=== PATIENT | male | born 1975 | race Caucasian/White ===

== ENCOUNTER 2021-01-04 17:27 | Inpatient (IN) | payer MEDICAID ==
[~2021-01-04] VITALS: Ht 185.4 cm; Wt 92.1 kg
[2021-01-04] MEDS ORDERED: LORAZEPAM INJ 2 MG/ML VIAL ONE ×2 (17:44→18:32)
--- NOTE | 2021-01-04 17:51 | NUR ---
SALLY [id number] From "Alcohol withdrawal/shakes given versed 4mg prior to transfer. feel weak/nauseous". PT AAOX4, RR EVEN & UNLABORED. DENIES CP, SOB, DIZZINESS AT THIS TIME. PT SEEN & EVAL'D BY LUIS ENRIQUE BAXTER. MEDICATED ORDERED, PT RAGHU WELL. PLACED ON FORMULA CLERK, ST. PLACED ON SEIZURE PRECAUTION. WILL CONT TO MONITOR.
[2021-01-04] MEDS ORDERED: LORAZEPAM INJ 2 MG/ML VIAL IVP ONE (18:00)
[2021-01-04] MEDS ORDERED: IV NS 0.9% 1,000 ML BAG IV ONE (18:00)
[2021-01-04] MEDS ORDERED: SERT-438 PO (18:29)
[2021-01-04] MEDS ORDERED: LORAZEPAM INJ 2 MG/ML VIAL IV ONE (18:30)
[2021-01-04] MEDS ORDERED: PHARMACY ADD 1 AMP MVI TO IVF DAILY ONE BAG XX PRN (19:00)
[2021-01-04] MEDS ORDERED: Thiamine 100 MG in IV D5W 50 ML IV SCH (19:00)
[2021-01-04] MEDS ORDERED: Folic acid 1 MG in IV D5W 50 ML IV SCH (19:00)
[2021-01-04] MEDS ORDERED: IV D5/0.45 NACL 1,000 ML IV ONE ×2 (19:00→20:00)
[2021-01-04] MEDS ORDERED: Thiamine 100 MG/ML VIAL ONE (19:02)
[2021-01-04] MEDS ORDERED: Folic acid 1 MG/0.2 ML VIAL ONE (19:02)
[2021-01-04] MEDS ORDERED: MVI-12 10ML IV ONE ×2 (19:04→22:00)
[2021-01-04 19:14] LABS: CALCIUM, SERUM 7.7 mg/dL (8.5-10.1); CREATININE 0.8 mg/dL (0.6-1.3); POTASSIUM 3.2 mmol/L (3.5-5.1)
[2021-01-04 19:19] LABS: ALBUMIN 3.2 g/dL (3.4-5.0); BILIRUBIN,DIRECT 0.5 mg/dL (0.0-0.2); BILIRUBIN,TOTAL 1.4 mg/dL (0.2-1.0)
[2021-01-04] MEDS ORDERED: POTASSIUM CHLORIDE 20 MEQ TAB.PRT.SR PO ONE ×2 (19:30→19:43)
[2021-01-04 19:54] LABS: BASOPHILS % (AUTO) 0.4 % (0.0-2.0); HEMATOCRIT 47 % (39-51); HEMOGLOBIN 15.9 g/dL (13.5-17.5); LYMPHOCYTES # (AUTO) 0.3 /CMM (0.8-4.8); LYMPHOCYTES % (AUTO) 3.2 % (20.0-44.0); MEAN CORPUSCULAR HGB CONC 34 g/dl (31.0-36.0); MEAN CORPUSCULAR VOLUME 97 fL (80-96); MONOCYTES # (AUTO) 0.5 /CMM (0.1-1.30); MONOCYTES % (AUTO) 4.6 % (2.0-12.0); NEUTROPHILS # (AUTO) 9.2 /CMM (1.8-8.9); NEUTROPHILS % (AUTO) 91.8 % (43.0-81.0); PLATELET COUNT (AUTO) 105 /CMM (150-450); RED BLOOD CELL COUNT(AUTO) 4.82 MIL/uL (4.5-6.0)
[2021-01-04 20:02] LABS: BILIRUBIN,URINE NEGATIVE (NEGATIVE); COLOR,URINE YELLOW (YELLOW); LEUKOCYTE ESTERASE ,URINE NEGATIVE (NEGATIVE); NITRITE, URINE NEGATIVE (NEGATIVE); PH,URINE 6.5 (5.0-8.0); PROTEIN,URINE NEGATIVE (NEGATIVE); UGLUCOSE NEGATIVE (NEGATIVE); UROBILINOGEN,URINE 0.2 EU/dL (0.2)
--- NOTE | 2021-01-04 20:18 | NUR ---
DR. MONTOYA PAGED PER ER ORDER.
--- NOTE | 2021-01-04 20:39 | NUR ---
ER MD SPOKE TO DR. SOTO REGARDING PT ADMISSION.
--- NOTE | 2021-01-04 20:40 | NUR ---
LAB CALLED REGARDING NEGATIVE COVID RESULT.
--- NOTE | 2021-01-04 20:45 | NUR ---
REPORT GIVEN TO GIOVANY DAVIES FOR KRISTYN
--- NOTE | 2021-01-04 21:10 | NUR ---
PT TRANSFERED PER ACLS PROTOCOL
--- NOTE | 2021-01-04 21:15 | NUR ---
OFFSET PLATE MAKER ADMITTING NOTES RECEIVED REPORT FROM KELBY HARDEN RN. PATIENT A/O X4; ABLE TO MAKE NEEDS KNOWN. ON ROOM AIR, TOLERATING WELL. EXTERNAL ECOLOGICAL MODELER READS SINUS TACHY AT 110. PATIENT DENIES PAIN OR DISCOMFORT AT THIS TIME. SHAKINESS NOTED TO BUE. SKIN INTACT. IV TO RFA #20G; PATENT AND INTACT. ALL BELONGINGS ACCOUNTED FOR AND SIGNED PATIENT BELONGINGS LIST. ORIENTED PATIENT TO ROOM, STAFF, AND UNIT. MAINTAINED ON NPO DIET AND EDUCATED PATIENT. SAFETY MEASURES IN PLACE: BED IN LOWEST LOCKED POSITION, SIDE RAILS UPX2, CALL LIGHT WITHIN REACH. WILL CONTINUE PLAN OF CARE.
[2021-01-04 21:30] VITALS: BP 136/78
[2021-01-04] MEDS ORDERED: ONDANSETRON HCL/PF 4 MG/2 ML VIAL IVP PRN (22:00)
[2021-01-04] MEDS ORDERED: ACETAMINOPHEN 325 MG TABLET PO PRN (22:00)
[2021-01-04] MEDS: Folic acid 1 MG in IV D5W 50 ML IV SCH (22:00)
[2021-01-04] MEDS ORDERED: MAGNESIUM HYDROXIDE 30 ML UDC PO PRN (22:00)
[2021-01-04] MEDS ORDERED: Z GUARD REMEDY 2 OZ OINT TP PRN (22:00)
[2021-01-04] MEDS ORDERED: HYDROCODONE/APAP 5/325MG TABLET PO PRN (22:00)
[2021-01-04] MEDS ORDERED: MAG HYDROX/AL HYDROX/SIMETH 30 ML UDC PO PRN (22:00)
[2021-01-04] MEDS ORDERED: ZOLPIDEM TARTRATE 5 MG TABLET PO PRN (22:00)
[2021-01-04] MEDS: Thiamine 100 MG in IV D5W 50 ML IV SCH (22:00)
--- NOTE | 2021-01-04 22:37 | NUR ---
TELERN SPOKE TO CN OF ER, MVI ADMINISTERED IN ER. RN NOTIFIED.
[2021-01-04] MEDS: IV NS 0.9% 1,000 ML IV SCH (22:43)
[2021-01-04] MEDS: LORAZEPAM INJ 2 MG/ML VIAL IV PRN (22:48)
--- NOTE | 2021-01-04 22:48 | NUR ---
PRESCHOOL PROGRAM DIRECTOR NOTE INITIATED NS @100ML/HR TO RFA #20G; PATENT AND INTACT. PATIENT NOTED WITH SHAKINESS TO BUE. ADMINISTERED ATIVAN ORDER PER PATIENT'S REQUEST. WILL CONTINUE TO ASSESS PATIENT.
[2021-01-05] VITALS: BP 136/83
[2021-01-05 04:00] VITALS: BP 128/77
[2021-01-05 06:31] LABS: BASOPHILS % (AUTO) 0.7 % (0.0-2.0); EOSINOPHILS % (AUTO) 0.5 % (0.0-6.0); HEMATOCRIT 48 % (39-51); HEMOGLOBIN 16.3 g/dL (13.5-17.5); LYMPHOCYTES # (AUTO) 0.8 /CMM (0.8-4.8); MEAN CORPUSCULAR HGB CONC 34 g/dl (31.0-36.0); MEAN CORPUSCULAR VOLUME 97 fL (80-96); MONOCYTES # (AUTO) 0.4 /CMM (0.1-1.30); MONOCYTES % (AUTO) 7.4 % (2.0-12.0); NEUTROPHILS % (AUTO) 76.4 % (43.0-81.0); PLATELET COUNT (AUTO) 86 /CMM (150-450); WHITE BLOOD COUNT (AUTO) 5.2 K/uL (4.3-11.0)
--- NOTE | 2021-01-05 06:38 | NUR ---
AUDIO VISUAL FACILITIES ENGINEER CLOSING NOTES RECEIVED REPORT FROM KELBY HARDEN RN. PATIENT A/O X4; ABLE TO MAKE NEEDS KNOWN. ON ROOM AIR, TOLERATING WELL. EXTERNAL COLD HEADER OPERATOR READS NSR AT 76. PATIENT DENIES PAIN OR DISCOMFORT AT THIS TIME. SHAKINESS NOTED TO BUE. SKIN INTACT. IV TO RFA #20G; NS @ 100ML/HR; PATENT AND INTACT. MAINTAINED ON NPO DIET AND EDUCATED PATIENT. SAFETY MEASURES IN PLACE: BED IN LOWEST LOCKED POSITION, SIDE RAILS UPX2, CALL LIGHT WITHIN REACH. WILL ENDORSE PLAN OF CARE TO ONCOMING MORNING RN.
[2021-01-05 06:59] LABS: CALCIUM, SERUM 7.8 mg/dL (8.5-10.1); CREATININE 0.7 mg/dL (0.6-1.3); MAGNESIUM 1.7 mg/dL (1.8-2.4)
[2021-01-05 07:44] LABS: POTASSIUM 2.8 mmol/L (3.5-5.1)
--- NOTE | 2021-01-05 07:52 | NUR ---
SOAPING DEPARTMENT SUPERVISOR OPENING NOTE PATIENT IS IN ROOM SLEEPING, PATIENT IS IN NO ACUTE DISTRESS. PATIENT IS ON ROOM AIR TOLERATING WELL. NO SOB NOTED. PATIENT IS ON TELE MONITOR READING SR IN THE 80S. SAFETY PRECAUTIONS ARE ON, BED IS LOCKED AND IN THE LOWEST POSITION, SIDE RAILS ARE UP, CALL LIGHT WITHIN REACH. WILL CONTINUE TO MONITOR CLOSELY THROUGHOUT THE SHIFT.
[2021-01-05 08:00] VITALS: BP 154/100
[2021-01-05] MEDS: LORAZEPAM INJ 2 MG/ML VIAL IV PRN ×4 (08:13→22:02)
[2021-01-05] MEDS: IV NS 0.9% 1,000 ML IV SCH ×2 (08:13→17:07)
[2021-01-05] MEDS: SERTRALINE HCL 50 MG TABLET PO SCH (08:13)
[2021-01-05] MEDS: POTASSIUM CHLORIDE 20 MEQ TAB.PRT.SR PO SCH ×3 (10:17→11:08)
[2021-01-05] MEDS: Magnesium 1GM/D5W 100ML PREMIX 100 ML IV SCH ×2 (10:18→11:43)
[2021-01-05 16:00] VITALS: BP 146/92
[2021-01-05] MEDS: CHLORDIAZEPOXIDE HCL 25 MG CAPSULE PO SCH (17:07)
--- NOTE | 2021-01-05 18:56 | NUR ---
MS RN CLOSING NOTE PATIENT IS IN ROOM SLEEPING, PATIENT IS IN NO ACUTE DISTRESS. PATIENT IS ON ROOM AIR TOLERATING WELL. NO SOB NOTED. PATIENT IS MS NOW. SAFETY PRECAUTIONS ARE ON, BED IS LOCKED AND IN THE LOWEST POSITION, SIDE RAILS ARE UP, CALL LIGHT WITHIN REACH. ENDORSE PATIENT TO MACHINE LAY OUT WORKER NURSE FOR KRISTYN.
--- NOTE | 2021-01-05 19:16 | NUR ---
MS RN OPENING NOTES PATIENT A/O X4; ABLE TO MAKE NEEDS KNOWN. ON ROOM AIR, TOLERATING WELL. PATIENT DENIES PAIN OR DISCOMFORT AT THIS TIME. SHAKINESS NOTED TO BUE. SKIN INTACT. IV TO LFA #22G; NS @ 100ML/HR; PATENT AND INTACT. SAFETY MEASURES IN PLACE: BED IN LOWEST LOCKED POSITION, SIDE RAILS UPX2, CALL LIGHT WITHIN REACH. PATIENT IS IN STABLE CONDITION AND WILL CONTINUE PLAN OF CARE TO.
[2021-01-05 20:00] VITALS: BP 147/100
[2021-01-05] MEDS: Thiamine 100 MG in IV D5W 50 ML IV SCH (21:53)
[2021-01-05] MEDS: Folic acid 1 MG in IV D5W 50 ML IV SCH (21:53)
--- NOTE | 2021-01-05 22:02 | NUR ---
MS RN NOTE PATIENT NOTED WITH MILD SHAKINESS TO BUE. ADMINISTERED ATIVAN ORDERED PER PATIENT'S REQUEST. WILL CONTINUE TO ASSESS PATIENT
[2021-01-06] MEDS: IV NS 0.9% 1,000 ML IV SCH ×2 (05:30→15:15)
--- NOTE | 2021-01-06 05:39 | NUR ---
MS RN CLOSING NOTES PATIENT A/O X4; ABLE TO MAKE NEEDS KNOWN. ON ROOM AIR, TOLERATING WELL. PATIENT DENIES PAIN OR DISCOMFORT AT THIS TIME. LESS SHAKINESS NOTED TO BUE. SKIN INTACT. IV TO LFA #22G; NS @ 100ML/HR; PATENT AND INTACT. SAFETY MEASURES IN PLACE: BED IN LOWEST LOCKED POSITION, SIDE RAILS UPX2, CALL LIGHT WITHIN REACH. PATIENT IS IN STABLE CONDITION AND ENDORSE CONTINUE PLAN OF CARE TO ONCOMING MORNING RN.
[2021-01-06] MEDS: LORAZEPAM INJ 2 MG/ML VIAL IV PRN ×2 (06:49→23:38)
--- NOTE | 2021-01-06 06:49 | NUR ---
MS RN NOTE PATIENT NOTED WITH MILD SHAKINESS TO BUE. ADMINISTERED ATIVAN ORDERED PER PATIENT'S REQUEST. WILL CONTINUE TO ASSESS PATIENT
--- NOTE | 2021-01-06 07:35 | NUR ---
MS RN OPENING NOTE PATIENT IS IN ROOM RESTING, PATIENT IS IN NO ACUTE DISTRESS. PATIENT IS ON ROOM AIR TOLERATING WELL. NO SOB NOTED. SAFETY PRECAUTIONS ARE ON, BED IS LOCKED AND IN THE LOWEST POSITION, SIDE RAILS ARE UP, CALL LIGHT WITHIN REACH. WILL CONTINUE TO MONITOR CLOSELY THROUGHOUT THE SHIFT.
[2021-01-06 08:00] VITALS: BP 123/81
[2021-01-06] MEDS: CHLORDIAZEPOXIDE HCL 25 MG CAPSULE PO SCH ×2 (08:22→13:40)
[2021-01-06] MEDS: SERTRALINE HCL 50 MG TABLET PO SCH (08:22)
[2021-01-06] MEDS: THIAMINE HCL 100 MG TABLET PO SCH (09:15)
[2021-01-06] MEDS: FOLIC ACID 1 MG TABLET PO SCH (09:15)
[2021-01-06 13:12] LABS: BASOPHILS % (AUTO) 0.6 % (0.0-2.0); EOSINOPHILS % (AUTO) 0.8 % (0.0-6.0); HEMATOCRIT 47 % (39-51); HEMOGLOBIN 16.1 g/dL (13.5-17.5); LYMPHOCYTES # (AUTO) 1.3 /CMM (0.8-4.8); LYMPHOCYTES % (AUTO) 19.5 % (20.0-44.0); MEAN CORPUSCULAR HGB CONC 34 g/dl (31.0-36.0); MEAN CORPUSCULAR VOLUME 97 fL (80-96); MONOCYTES # (AUTO) 0.6 /CMM (0.1-1.30); MONOCYTES % (AUTO) 8.1 % (2.0-12.0); NEUTROPHILS # (AUTO) 4.9 /CMM (1.8-8.9); PLATELET COUNT (AUTO) 86 /CMM (150-450); RED BLOOD CELL COUNT(AUTO) 4.87 MIL/uL (4.5-6.0); WHITE BLOOD COUNT (AUTO) 6.8 K/uL (4.3-11.0)
[2021-01-06 13:27] LABS: CALCIUM, SERUM 8.2 mg/dL (8.5-10.1); CREATININE 0.8 mg/dL (0.6-1.3); PHOSPHORUS 2.6 mg/dL (2.5-4.9)
[2021-01-06 13:30] LABS: ALBUMIN 3.3 g/dL (3.4-5.0); BILIRUBIN,DIRECT 0.7 mg/dL (0.0-0.2); BILIRUBIN,TOTAL 2.1 mg/dL (0.2-1.0); TOTAL PROTEIN, SERUM 7.2 g/dL (6.4-8.2)
[2021-01-06 16:00] VITALS: BP 129/79
[2021-01-06] MEDS ORDERED: POTASSIUM CHLORIDE 20 MEQ TAB.PRT.SR PO ONE (17:30)
--- NOTE | 2021-01-06 18:41 | NUR ---
MS RN CLOSING NOTE PATIENT IS IN ROOM RESTING, PATIENT IS IN NO ACUTE DISTRESS. PATIENT IS ON ROOM AIR TOLERATING WELL. NO SOB NOTED. SAFETY PRECAUTIONS ARE ON, BED IS LOCKED AND IN THE LOWEST POSITION, SIDE RAILS ARE UP, CALL LIGHT WITHIN REACH. ENDORSE PATIENT TO PUTTY AND PATCH WORKER NURSE FOR KRISTYN.
--- NOTE | 2021-01-06 19:28 | NUR ---
MS RN OPENING NOTES PATIENT A/O X4; ABLE TO MAKE NEEDS KNOWN. ON ROOM AIR, TOLERATING WELL. PATIENT DENIES PAIN OR DISCOMFORT AT THIS TIME. IV TO RFA #20G; NS @ 100ML/HR; PATENT AND INTACT. SAFETY MEASURES IN PLACE: BED IN LOWEST LOCKED POSITION, SIDE RAILS UPX2, CALL LIGHT WITHIN REACH. PATIENT IS IN STABLE CONDITION AND WILL CONTINUE PLAN OF CARE .
[2021-01-06 20:00] VITALS: BP 136/75
--- NOTE | 2021-01-06 23:38 | NUR ---
MS RN NOTE PATIENT VOICED ANXIETY AND NOTED WITH MILD SHAKINESS TO BUE. ADMINISTERED ATIVAN ORDERED PER PATIENT'S REQUEST. WILL CONTINUE TO ASSESS PATIENT
[2021-01-07] MEDS: IV NS 0.9% 1,000 ML IV SCH (00:50)
--- NOTE | 2021-01-07 05:55 | NUR ---
MS RN CLOSING NOTES PATIENT A/O X4; ABLE TO MAKE NEEDS KNOWN. ON ROOM AIR, TOLERATING WELL. PATIENT DENIES PAIN OR DISCOMFORT AT THIS TIME. LESS SHAKINESS NOTED TO BUE. SKIN INTACT. IV TO RFA #20G; NS @ 100ML/HR; PATENT AND INTACT. SAFETY MEASURES IN PLACE: BED IN LOWEST LOCKED POSITION, SIDE RAILS UPX2, CALL LIGHT WITHIN REACH. PATIENT IS IN STABLE CONDITION AND ENDORSE CONTINUE PLAN OF CARE TO ONCOMING MORNING RN.
[2021-01-07 06:39] LABS: BASOPHILS # (AUTO) 0.1 /CMM (0.0-0.2); EOSINOPHILS % (AUTO) 1.5 % (0.0-6.0); HEMATOCRIT 46 % (39-51); HEMOGLOBIN 15.4 g/dL (13.5-17.5); LYMPHOCYTES # (AUTO) 1.5 /CMM (0.8-4.8); MEAN CORPUSCULAR HGB CONC 34 g/dl (31.0-36.0); MEAN CORPUSCULAR VOLUME 97 fL (80-96); MONOCYTES # (AUTO) 0.5 /CMM (0.1-1.30); MONOCYTES % (AUTO) 8.4 % (2.0-12.0); NEUTROPHILS # (AUTO) 3.6 /CMM (1.8-8.9); NEUTROPHILS % (AUTO) 63.1 % (43.0-81.0); PLATELET COUNT (AUTO) 74 /CMM (150-450); RED BLOOD CELL COUNT(AUTO) 4.72 MIL/uL (4.5-6.0); WHITE BLOOD COUNT (AUTO) 5.6 K/uL (4.3-11.0)
[2021-01-07 07:07] LABS: CALCIUM, SERUM 8.2 mg/dL (8.5-10.1); CREATININE 0.8 mg/dL (0.6-1.3); POTASSIUM 3.1 mmol/L (3.5-5.1)
[2021-01-07 08:00] VITALS: BP 114/89
[2021-01-07] MEDS: SERTRALINE HCL 50 MG TABLET PO SCH (08:26)
[2021-01-07] MEDS: FOLIC ACID 1 MG TABLET PO SCH (08:26)
[2021-01-07] MEDS: THIAMINE HCL 100 MG TABLET PO SCH (08:26)
[2021-01-07] MEDS ORDERED: CHLORDIAZEPOXIDE HCL 25 MG CAPSULE PO SCH (09:00)
[2021-01-07] MEDS ORDERED: IV NS 0.9% 1,000 ML IV PRN (10:30)
[2021-01-07] MEDS: POTASSIUM CHLORIDE 20 MEQ TAB.PRT.SR PO SCH ×2 (10:40→10:41)
[2021-01-07] MEDS ORDERED: THIA100T70 PO (13:46)
[2021-01-07] MEDS ORDERED: FOLI0.8T3 PO (13:46)
--- NOTE | 2021-01-07 14:46 | NUR ---
MS POKER MACHINE ATTENDANT NOTE PATIENT IS IN NO ACUTE DISTRESS. PATIENT IS MEDICALLY STABLE TO BE DISCHARGED. PATIENTS NEEDS WERE MET DURING THE STAY. DISCHARGED INSTRUCTION PROVIDED TO THE PATIENT. PATIENT VERBALIZED UNDERSTANDING. PATIENT SIGNED DISCHARGE FORMS. VALUABLES FORM WENT OVER AND SIGNED. PATIENT ID AND IV LINE REMOVED. PATIENT LEFT VIA PRIVATE CAR. MD IS AWARE OF DISCHARGE.
[2021-01-09 20:00] VITALS: BP 105/63
== END 2021-01-07 14:35 | disposition home or self-care (01) | DRG 775 ==
LOC: ER 17:38 → TELE 21:00 → MED 01-05 09:47
PROVIDERS: ADMIT Family Medicine; ATTEND Student in an Organized Health Care Education/Training Program
DX: F10.131 Alcohol abuse with withdrawal delirium (principal); D69.6 Thrombocytopenia, unspecified; E44.1 Mild protein-calorie malnutrition; E83.51 Hypocalcemia; E88.09 Other disorders of plasma-protein metabolism, not elsewhere classified; F10.129 Alcohol abuse with intoxication, unspecified; Y90.0 Blood alcohol level of less than 20 mg/100 ml; F32.9 Major depressive disorder, single episode, unspecified; F41.9 Anxiety disorder, unspecified; E87.6 Hypokalemia; R73.9 Hyperglycemia, unspecified; E80.6 Other disorders of bilirubin metabolism; R74.01 Elevation of levels of liver transaminase levels; Z20.822 Contact with and (suspected) exposure to COVID-19; Z68.26 Body mass index [BMI] 26.0-26.9, adult
CPT/HCPCS: 36415; 71045-TC; 80048-TC; 80061-TC; 80076-TC; 83735-TC; 84100-TC; 85025-TC; 87081-TC; C9803; G0378; G0480; J2060; J3411; J3475; J3490; J7030; J7060

== ENCOUNTER 2021-03-27 10:33 | Emergency (ER) | payer MEDICAID, OTHER ==
[~2021-03-27] VITALS: Ht 185.4 cm; Wt 102.1 kg
[~2021-03-27 10:33] MED LIST: FOLI0.8T3 PO; SERT-438 PO; THIA100T70 PO
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
--- NOTE | 2021-03-27 10:43 | NUR ---
RIGGING FOREMAN AT BEDSIDE. URINE CUP PROVIDED.
[2021-03-27 10:52] LABS: BASOPHILS # (AUTO) 0.1 K/uL (0.0-0.2); EOSINOPHILS % (AUTO) 0.3 % (0.0-6.0); HEMATOCRIT 47 % (39-51); HEMOGLOBIN 15.8 g/dL (13.5-17.5); LYMPHOCYTES # (AUTO) 2.1 K/uL (0.8-4.8); LYMPHOCYTES % (AUTO) 30.2 % (20.0-44.0); MEAN CORPUSCULAR HGB CONC 34 g/dl (31.0-36.0); MEAN CORPUSCULAR VOLUME 92 fL (80-96); MONOCYTES # (AUTO) 0.3 K/uL (0.1-1.30); NEUTROPHILS # (AUTO) 4.4 K/uL (1.8-8.9); NEUTROPHILS % (AUTO) 63.5 % (43.0-81.0); PLATELET COUNT (AUTO) 210 K/uL (150-450); RED BLOOD CELL COUNT(AUTO) 5.04 MIL/uL (4.5-6.0); WHITE BLOOD COUNT (AUTO) 6.9 K/uL (4.3-11.0)
[2021-03-27 10:59] LABS: CALCIUM, SERUM 8.3 mg/dL (8.5-10.1); CREATININE 0.7 mg/dL (0.6-1.3); POTASSIUM 3.7 mmol/L (3.5-5.1)
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
--- NOTE | 2021-03-27 11:09 | NUR ---
PT RECEIVED IN BED AWAKE, ALERT AND ORIENTED X 4. NOT IN DISTRESS. UNABLE TO STILL PROVIDE URINE SAMPLE. PT WAS PROVIDED WITH WATER WELL.
[2021-03-27 11:22] LABS: BILIRUBIN,DIRECT 0.2 mg/dL (0.0-0.2); BILIRUBIN,TOTAL 0.7 mg/dL (0.2-1.0); TOTAL PROTEIN, SERUM 7.7 g/dL (6.4-8.2)
[2021-03-27 11:29] LABS: BILIRUBIN,URINE Negative (NEGATIVE); COLOR,URINE YELLOW (YELLOW); LEUKOCYTE ESTERASE ,URINE Negative (NEGATIVE); NITRITE, URINE Negative (NEGATIVE); PROTEIN,URINE Trace mg/dl (NEGATIVE); UGLUCOSE Negative (NEGATIVE); UROBILINOGEN,URINE 0.2 EU/dL (0.2)
[2021-03-27 11:30] LABS: BACTERIA,URINE Rare /HPF (None Seen); SQUAMOUS EPITHELIAL CELL,UR Rare /HPF (None Seen); WBC,URINE 0-2 /HPF (0-3)
--- NOTE | 2021-03-27 12:30 | NUR ---
PT IS PROVIDED WITH A MEAL. PT AMBULATED TO BATHROOM ON STEADY GAIT W/O ASSIST.
--- NOTE | 2021-03-27 12:54 | NUR ---
PT LEFT ON STEADY GAIT.
--- NOTE | 2021-03-27 12:54 | NUR ---
MEDICALLY CLEARED BY DR CHATMAN AND SEEN BY DATA ANALYTICS CHIEF SCIENTIST. OK TO DISCHARGE
[2021-03-27 13:27] VITALS: BP 146/95
== END 2021-03-27 12:55 | disposition home or self-care (01) ==
LOC: ER 10:39
DX: F10.129 Alcohol abuse with intoxication, unspecified (principal); T42.4X1A Poisoning by benzodiazepines, accidental (unintentional), initial encounter; Y92.89 Other specified places as the place of occurrence of the external cause; Z79.899 Other long term (current) drug therapy; Y90.8 Blood alcohol level of 240 mg/100 ml or more
CPT/HCPCS: 36415; 80048-TC; 80076-TC; 81001; 85025-TC; G0480

== ENCOUNTER 2021-04-05 11:16 | Emergency (ER) | payer OTHER ==
[~2021-04-05] VITALS: Ht 182.9 cm; Wt 280.3 kg
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
--- NOTE | 2021-04-05 11:36 | NUR ---
DR NICHOLE AT BEDSIDE FOR EVAL.
--- NOTE | 2021-04-05 11:50 | NUR ---
SIGNAL INTELLIGENCE ANALYST AT BEDSIDE FOR BLOOD DRAW.
[2021-04-05] MEDS ORDERED: ONDANSETRON HCL/PF 4 MG/2 ML VIAL ONE (11:51)
[2021-04-05] MEDS ORDERED: LORAZEPAM INJ 2 MG/ML VIAL ONE (11:52)
[2021-04-05 11:54] LABS: BASOPHILS % (AUTO) 0.4 % (0.0-2.0); EOSINOPHILS % (AUTO) 0.4 % (0.0-6.0); HEMATOCRIT 44 % (39-51); HEMOGLOBIN 14.9 g/dL (13.5-17.5); LYMPHOCYTES % (AUTO) 18.5 % (20.0-44.0); MEAN CORPUSCULAR HGB CONC 34 g/dl (31.0-36.0); MEAN CORPUSCULAR VOLUME 92 fL (80-96); MONOCYTES # (AUTO) 0.4 K/uL (0.1-1.30); MONOCYTES % (AUTO) 8.4 % (2.0-12.0); NEUTROPHILS # (AUTO) 3.9 K/uL (1.8-8.9); NEUTROPHILS % (AUTO) 72.3 % (43.0-81.0); PLATELET COUNT (AUTO) 89 K/uL (150-450); RED BLOOD CELL COUNT(AUTO) 4.79 MIL/uL (4.5-6.0); WHITE BLOOD COUNT (AUTO) 5.4 K/uL (4.3-11.0)
[2021-04-05] MEDS ORDERED: LORAZEPAM INJ 2 MG/ML VIAL IV ONE (12:00)
[2021-04-05] MEDS ORDERED: ONDANSETRON HCL/PF 4 MG/2 ML VIAL IVP ONE (12:00)
[2021-04-05] MEDS ORDERED: IV NS 0.9% 1,000 ML BAG IV ONE (12:00)
[2021-04-05 12:19] LABS: CALCIUM, SERUM 7.9 mg/dL (8.5-10.1); CREATININE 0.8 mg/dL (0.6-1.3)
[2021-04-05 12:33] LABS: ALBUMIN 3.8 g/dL (3.4-5.0); BILIRUBIN,DIRECT 0.4 mg/dL (0.0-0.2); TOTAL PROTEIN, SERUM 7.5 g/dL (6.4-8.2)
[2021-04-05 13:15] LABS: LYMPHOCYTES % (MANUAL) 22 % (16-48); MONOCYTES % (MANUAL) 5 % (0-11.0); NEUTROPHILS % (MANUAL) 73 (42-76)
[2021-04-05] MEDS ORDERED: POTASSIUM CHLORIDE 20 MEQ TAB.PRT.SR PO ONE ×2 (14:30→14:36)
--- NOTE | 2021-04-05 17:01 | NUR ---
COVID PENDING, MACHINE IS BROKEN PER CLS TERRI
--- NOTE | 2021-04-05 17:20 | NUR ---
PT PROVIDED W/ DINNER TRAY.
--- NOTE | 2021-04-05 17:40 | NUR ---
PT AWARE OF DELAYED COVID RESULT. REQUESTED TO BE DISCHARGED ALREADY. PT WAS PROVIDE W/ DINNER TRAY. STABLE VITALS. I/V LINE DISCONTINUED. DISCHARGED HOME IN STABLE CONDITION.
[2021-04-05 17:42] VITALS: BP 125/80
== END 2021-04-05 17:43 | disposition home or self-care (01) ==
LOC: ER 11:20
DX: S09.90XA Unspecified injury of head, initial encounter (principal); Y04.0XXA Assault by unarmed brawl or fight, initial encounter; Y92.89 Other specified places as the place of occurrence of the external cause; F10.229 Alcohol dependence with intoxication, unspecified; F12.10 Cannabis abuse, uncomplicated; Y90.6 Blood alcohol level of 120-199 mg/100 ml; E87.6 Hypokalemia; K70.9 Alcoholic liver disease, unspecified; D69.6 Thrombocytopenia, unspecified; Z20.822 Contact with and (suspected) exposure to COVID-19
CPT/HCPCS: 36415; 80048; 80076; 80143; 80307; 80320; 85007; 85025; 87426; 96361; 96374; 96375; 99285; C9803; J2060; J2405; J7030; G0480